=== PATIENT | male | born 1985 | race African-American/Black ===

== ENCOUNTER 2017-07-22 00:41 | Emergency (ER) | payer OTHER ==
[~2017-07-22] VITALS: Ht 170.2 cm; Wt 68.0 kg
[~2017-07-22 00:41] MED LIST: ALBUTEROL SULF8.5 GM INH; AZITHROMYCIN250 MG ORAL; CYCLOBENZAPRINE10 MG ORAL; HYDROCODON-ACE1 EA15 ORAL; IBUPROFEN600 MG ORAL
[2017-07-22 01:00] VITALS: BP 120/66
[2017-07-22] MEDS ORDERED: Methocarbamol 750mg tab ORAL ONE (01:30)
[2017-07-22] MEDS ORDERED: Ketorolac 30mg Inj IM ONE (01:30)
[2017-07-22] MEDS ORDERED: ROBAXIN-750750 MG PO (02:13)
[2017-07-22] MEDS ORDERED: IBUPROFEN600 MG ORAL (02:13)
[2017-07-22] MEDS ORDERED: CLINDAMYCIN HC300 MG ORAL (02:13)
[2017-07-22 02:25] VITALS: BP 118/68
--- NOTE | 2017-07-22 04:01 | Emergency Room Report ---
History of Present Illness General Chief Complaint: Neck Pain Source: Patient Present Illness HPI 32-year-old male presents ED complaining of right tooth pain neck stiffness 2 weeks. States he has a "hole in the tooth". Patient states he needs to see a dentist. Pain is throbbing, 8 out of 10, nonradiating. Denies fevers or chills. Denies headache. Denies nausea or vomiting. No other aggravating relieving factors. Denies any other associated symptoms Allergies: Coded Allergies: PENICILLINS (Unverified Allergy, Unknown, 12/25/14) Patient History Past Medical History: none Past Surgical History: none Pertinent Family History: none Social History: Denies: smoking, alcohol use, drug use Immunizations: UTD Reviewed Nursing Documentation: PMH: Agreed; PSxH: Agreed Review of Systems All Other Systems: negative except mentioned in HPI Physical Exam Vital Signs Date Time Temp Pulse Resp B/P (MAP) Pulse Ox O2 Delivery O2 Flow Rate FiO2 07/22/17 00:56 98.0 61 18 117/72 96 Room Air 98.1 Sp02 EP Interpretation: reviewed, normal General Appearance: no apparent distress, alert, GCS 15, non-toxic Head: normocephalic, atraumatic Eyes: bilateral eye normal inspection, bilateral eye PERRL ENT: hearing grossly normal, normal pharynx, no angioedema, normal voice, other - multiple dental caries Neck: full range of motion, supple, no meningismus, supple/symm/no masses Respiratory: chest non-tender, lungs clear, normal breath sounds, speaking full sentences Cardiovascular #1: regular rate, rhythm, no edema Cardiovascular #2: 2+ carotid (R), 2+ carotid (L), 2+ radial (R), 2+ radial (L) , 2+ dorsalis pedis (R), 2+ dorsalis pedis (L) Gastrointestinal: normal bowel sounds, non tender, soft, non-distended, no guarding, no rebound Rectal: deferred Genitourinary: normal inspection, no CVA tenderness Musculoskeletal: back normal, gait/station normal, normal range of motion, non- tender Neurologic: alert, oriented x3, responsive, motor strength/tone normal, sensory intact, speech normal Psychiatric: judgement/insight normal, memory normal, mood/affect normal, no suicidal/homicidal ideation Reflexes: 3+ bicep (R), 3+ bicep (L), 3+ tricep (R), 3+ tricep (L), 3+ knee (R) , 3+ knee (L) Skin: normal color, no rash, warm/dry, well hydrated Lymphatic: no adenopathy Medical Decision Making Diagnostic Impression: Primary Impression: Tooth infection Additional Impression: Strain of neck Qualified Codes: S16.1XXA - Strain of muscle, fascia and tendon at neck level , initial encounter ER Course 32-year-old male presents ED complaining of tooth pain, neck stiffness Cracked tooth, dental abscess, cavity Patient placed on stretcher. After initial history, physical exam reveals a male in mild distress. There are multiple dental caries. There is no meningismal sign, there is full range of motion to the neck. Given Toradol, Robaxin in ED. On reassessment pain improved Diagnosis- tooth infection, strain of neck Stable and discharged to home prescription for Motrin, Robaxin, clindamycin Instructed to see dentist as a walk-in this week. Return to ED if symptoms recur or worse Last Vital Signs Date Time Temp Pulse Resp B/P (MAP) Pulse Ox O2 Delivery O2 Flow Rate FiO2 07/22/17 01:55 98.0 07/22/17 00:56 61 18 117/72 96 Room Air Status: improved Disposition: HOME, SELF-CARE Condition: Stable Scripts Clindamycin Hcl (CLINDAMYCIN HCL) 300 Mg Capsule 300 MG ORAL THREE TIMES A DAY, #21 CAP Prov: Willian Ann MD 07/22/17 Methocarbamol* (ROBAXIN-750*) 750 Mg Tablet 750 MG PO TID, #21 TAB 0 Refills Prov: Willian Ann MD 07/22/17 Ibuprofen* (MOTRIN*) 600 Mg Tablet 600 MG ORAL Q8H PRN for For Pain, #30 TAB 0 Refills Prov: Willian Ann MD 07/22/17 Patient Instructions: Dental Abscess, [id number] Willian Ann MD July 22, 2017 04:01
== END 2017-07-22 02:25 | disposition home or self-care (01) ==
LOC: EMR 01:24
DX: K04.7 Periapical abscess without sinus (principal); S16.1XXA Strain of muscle, fascia and tendon at neck level, initial encounter; X58.XXXA Exposure to other specified factors, initial encounter; Y92.9 Unspecified place or not applicable; Z88.0 Allergy status to penicillin
CPT/HCPCS: 96372; 99284; J1885

== ENCOUNTER 2017-08-31 13:49 | Emergency (ER) | payer OTHER ==
[~2017-08-31] VITALS: Ht 170.2 cm; Wt 70.3 kg
[~2017-08-31 13:49] MED LIST changes: +CLINDAMYCIN HC300 MG ORAL; +ROBAXIN-750750 MG PO
[2017-08-31 13:56] VITALS: BP 121/81
[2017-08-31] MEDS ORDERED: IBUPROFEN600 MG ORAL (14:18)
[2017-08-31] MEDS ORDERED: CLINDAMYCIN HC300 MG ORAL (14:18)
[2017-08-31 14:30] VITALS: BP 121/81
--- NOTE | 2017-08-31 14:31 | Emergency Room Report ---
History of Present Illness General Chief Complaint: Toothache Source: Patient Present Illness HPI Patient presents with right upper facial swelling Reports that he was here previously with dental infection was given antibiotics Patient reports [id number] episode with his insurance and dental specialist Patient had change in care He has not been able to see a specialist yet Denies any fevers or chills Denies any chest pain or short of breath The area on the left upper dental region is now more painful Denies any trismus Allergies: Coded Allergies: PENICILLINS (Unverified Allergy, Unknown, 12/25/14) Patient History Past Medical History: see triage record Pertinent Family History: none Reviewed Nursing Documentation: PMH: Agreed; PSxH: Agreed Nursing Documentation-PMH Past Medical History: No Stated History Review of Systems All Other Systems: negative except mentioned in HPI Physical Exam Vital Signs Date Time Temp Pulse Resp B/P (MAP) Pulse Ox O2 Delivery O2 Flow Rate FiO2 08/31/17 13:54 98.3 48 20 121/81 96 Room Air 98.2 Sp02 EP Interpretation: reviewed, normal General Appearance: well appearing, no apparent distress Head: normocephalic, atraumatic Eyes: bilateral eye PERRL, bilateral eye EOMI ENT: other - Right upper maxillary area does appear mildly swollen compared to the left, there is appearance of dental decay in the right upper back molar region, no obvious trismus Neck: supple Respiratory: lungs clear Cardiovascular #1: regular rate, rhythm Musculoskeletal: normal inspection Neurologic: alert, oriented x3, responsive Skin: normal color, no rash Lymphatic: no adenopathy Medical Decision Making Diagnostic Impression: Primary Impression: dental abscess ER Course Given a clinical exam and the history it appears that the patient's infection is progressing into likely dental abscess patient is put back on antibiotics Requires close dental follow-up he was recommended to follow up at another dental clinic if he is not able to be seen however he reports that on Thursday he is going to the clinic and will be seen at that time , Last Vital Signs Date Time Temp Pulse Resp B/P (MAP) Pulse Ox O2 Delivery O2 Flow Rate FiO2 08/31/17 13:54 98.3 48 20 121/81 96 Room Air 98.2 Status: unchanged Disposition: HOME, SELF-CARE Condition: Stable Scripts Ibuprofen* (MOTRIN*) 600 Mg Tablet 600 MG ORAL Q8H PRN for For Pain, #20 TAB 0 Refills Prov: Jamehdor,Ali DO 08/31/17 Clindamycin Hcl (CLINDAMYCIN HCL) 300 Mg Capsule 300 MG ORAL THREE TIMES A DAY, #30 CAP Prov: Schuyler Avitia DO 08/31/17 Referrals: [facility],REFERRING (PCP) Patient Instructions: Dental Abscess, [id number] Additional Instructions: your condition requires a dental specialist. this has been discussed on previous exam. the infection appears to be fetting worse. Schuyler Avitia DO Aug 31, 2017 14:31
== END 2017-08-31 14:30 | disposition home or self-care (01) ==
LOC: EMR 14:26
DX: K04.7 Periapical abscess without sinus (principal); Z88.0 Allergy status to penicillin
CPT/HCPCS: 99284